=== PATIENT | male | born 1980 | race Hispanic/Latino ===

== ENCOUNTER 2018-10-11 00:45 | Emergency (ER) | payer OTHER ==
[2018-10-11] MEDS ORDERED: FLUORESCEIN SODIUM 1 STRIP STRIP ONE (01:03)
[2018-10-11] MEDS ORDERED: TETRACAINE HCL 0.5% 4 ML OPHTH SOLN ONE (01:03)
[2018-10-11] MEDS ORDERED: DIPHENHYDRAMINE HCL 25 MG CAPSULE ONE (01:31)
[2018-10-11] MEDS ORDERED: IBUPROFEN 800 MG TAB ONE (01:31)
[2018-10-11] MEDS ORDERED: PREDNISONE 20 MG TABLET ONE (01:45)
== END 2018-10-11 02:13 | disposition home or self-care (01) ==
LOC: EDH 00:45
DX: H57.11 Ocular pain, right eye (principal); E11.9 Type 2 diabetes mellitus without complications; Z72.0 Tobacco use; Z79.84 Long term (current) use of oral hypoglycemic drugs
CPT/HCPCS: 99284; Q0163

== ENCOUNTER 2019-03-02 15:18 | Emergency (ER) | payer OTHER ==
[2019-03-02] MEDS ORDERED: SODIUM CHLORIDE 0.9% 1000ML 1,000 ML IV ONE (15:27)
[2019-03-02] MEDS ORDERED: FAMOTIDINE/PF 20 MG/2 ML VIAL IV ONE (15:27)
[2019-03-02] MEDS ORDERED: METHYLPREDNISOLONE SOD SUCC 125MG/2ML VIAL ONE (15:27)
[2019-03-02] MEDS ORDERED: IPRATROPIUM/ALBUTEROL SULFATE 3 ML SOLUTION IH ONE (15:58)
== END 2019-03-02 19:06 | disposition home or self-care (01) ==
LOC: EDH 15:18
DX: T78.3XXA Angioneurotic edema, initial encounter (principal); E11.9 Type 2 diabetes mellitus without complications; Z72.0 Tobacco use
CPT/HCPCS: 94640; 96374; 96375; 99284; J2930; J3490; J7030

== ENCOUNTER 2020-08-18 07:50 | Emergency (ER) | payer OTHER ==
[2020-08-18] MEDS ORDERED: DEXAMETHASONE SOD PHOSPHATE 10MG/ML 1ML VIAL ONE (08:57)
[2020-08-18] MEDS ORDERED: FAMOTIDINE 20MG TAB 20 MG TAB ONE (08:57)
[2020-08-18] MEDS ORDERED: DiphenhydrAMINE HCL 50 MG/ML VIAL ONE (08:58)
== END 2020-08-18 09:18 | disposition home or self-care (01) ==
LOC: EDH 07:50
DX: T78.49XA Other allergy, initial encounter (principal); L50.0 Allergic urticaria; R22.0 Localized swelling, mass and lump, head; E11.9 Type 2 diabetes mellitus without complications; Z72.0 Tobacco use; X58.XXXA Exposure to other specified factors, initial encounter
CPT/HCPCS: 96372 ×2; 99284; J1100; J1200

== ENCOUNTER → 2021-01-04 | Outpatient (CLI) | payer OTHER | END | disposition home or self-care (01) | LOC: RAH 09:01 | PROVIDERS: ATTEND Internal Medicine | DX: M54.12 Radiculopathy, cervical region (principal) | CPT/HCPCS: 72141 ==